=== PATIENT | female | born 1970 | race Caucasian/White ===

== ENCOUNTER 2019-04-07 18:07 | Emergency (ER) | payer SELFPAY ==
[~2019-04-07] VITALS: Ht 162.6 cm; Wt 90.9 kg
[2019-04-07 18:31] VITALS: TEMP 97.9
[2019-04-07] MEDS ORDERED: LANTUS100 U/ML SQ (18:36)
[2019-04-07] MEDS ORDERED: HUMALOGKP50/50 SQ (18:36)
[2019-04-07] MEDS ORDERED: NORVASC 5MG5 MG/TAB (18:37)
[2019-04-07] MEDS ORDERED: AMITRIPTYLINE H50 M1 PO (18:37)
[2019-04-07] MEDS ORDERED: COZAAR100 MG PO (18:37)
[2019-04-07] MEDS ORDERED: LIPITOR 40MG TA40 MG PO ×2 (18:37→20:46)
[2019-04-07] MEDS ORDERED: TOPROL XL 25MG25 MG PO ×2 (18:38→20:46)
[2019-04-07] MEDS ORDERED: FLOVENT 220MCG7.9 GM IH (18:53)
[2019-04-07 19:25] LABS: BASO # 0.1 (0.0-0.2); BASO % 0.9 % (0.0-2.0); EOS # 0.2 (0.0-0.7); EOS % 2.2 % (0-4.0); GRAN # 4.7 (1.4-6.5); GRAN % 62.5 % (42.2-75.2); HEMATOCRIT 43.9 % (37.0-47.0); HEMOGLOBIN 14.4 g/dl (12.5-16.0); LYMPH # 1.9 (1.2-3.4); LYMPH % 25.3 % (20.0-51.0); MEAN CELL VOLUME 88 fl (80.0-100.0); MEAN CORPUSCULAR HEMOGLOBIN 29 pg (27.0-31.0); MEAN CORPUSCULAR HGB CONC 33 g/dl (33.0-37.0); MEAN PLATELET VOLUME 9.9 fl (7.4-10.4); MONO # 0.6 (0.1-0.6); MONO % 8.3 % (1.7-9.3); PLATELET COUNT 240 K/mm3 (130-400); RED BLOOD COUNT 5.02 M/mm3 (4.10-5.30); REDCELL DISTRIBUTION WIDTH-CV 13.5 % (11.5-14.5)
[2019-04-07 19:32] LABS: ALANINE AMINOTRANSFERASE 161 U/L (9-52); ALBUMIN 3.8 gm/dL (3.5-5.0); ALKALINE PHOSPHATASE 227 U/L (50-136); ANION GAP 10 mmol/L (7-16); AST,SGOT 70 U/L (15-37); BILIRUBIN,TOTAL 0.2 mg/dL (0.0-1.0); BLOOD UREA NITROGEN 11 mg/dL (7-17); CARBON DIOXIDE 24 mmol/L (22-30); CHLORIDE 105 mmol/L (98-107); CREATININE, serum 0.49 (0.52-1.25); GLUCOSE 332 mg/dL (74-106); POTASSIUM 4.1 mmol/L (3.4-5.0); SODIUM 138 mmol/L (137-145)
[2019-04-07 19:44] LABS: TROPONIN-I < 0.012 ng/mL (0.000-0.035)
[2019-04-07] MEDS ORDERED: INSULIN 70/3100 U/ML SQ (20:44)
[2019-04-07] MEDS ORDERED: NORVASC 5MG5 MG/TAB PO (20:46)
[2019-04-07 20:58] VITALS: BP 169/103; PULSE 95
[2019-04-07] MEDS ORDERED: DOXYCYCLINE HY100 MG PO (21:09)
== END 2019-04-07 21:16 | disposition home or self-care (01) ==
LOC: COL.ER 18:07
PROVIDERS: Emergency Medicine
DX: E11.65 Type 2 diabetes mellitus with hyperglycemia (principal); L02.211 Cutaneous abscess of abdominal wall; I10 Essential (primary) hypertension; F17.210 Nicotine dependence, cigarettes, uncomplicated; I25.10 Atherosclerotic heart disease of native coronary artery without angina pectoris; Z95.5 Presence of coronary angioplasty implant and graft; Z79.82 Long term (current) use of aspirin; Z79.4 Long term (current) use of insulin; Z79.51 Long term (current) use of inhaled steroids
CPT/HCPCS: J1815; J1885; J7030